=== PATIENT | male | born 1995 | race Caucasian/White ===

== ENCOUNTER 2017-06-27 23:01 | Emergency (ER) | payer OTHER ==
[~2017-06-27] VITALS: Ht 177.8 cm; Wt 77.1 kg
[~2017-06-27 23:01] MED LIST: IBUPROFEN PO; PERCOCET 325 MG1 TA2 PO; ROBITUSSIN AC PO; TAMIFLU PO; ZOFRAN ODT PO
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
[2017-06-27] MEDS ORDERED: IBUPROFEN800 M1 PO (23:29)
[2017-06-27 23:44] VITALS: BP 136/81
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
== END 2017-06-28 00:41 ==
LOC: ERH 23:01
DX: S29.9XXA Unspecified injury of thorax, initial encounter (principal); W51.XXXA Accidental striking against or bumped into by another person, initial encounter; Y93.83 Activity, rough housing and horseplay; Y92.9 Unspecified place or not applicable
CPT/HCPCS: 71100-LT